=== PATIENT | female | born 1985 ===

== ENCOUNTER 2017-06-29 09:36 | Emergency (ER) | payer OTHER ==
[2017-06-29 09:36] VITALS: BMI 25.8
[2017-06-29 09:52] VITALS: RESP 16; TEMP 98.5
[2017-06-29] MEDS ORDERED: Oxycodone/Acetaminophen 5/325 mg Tab PO STA (10:01)
[2017-06-29] MEDS ORDERED: Lidocaine 5% Patch TD STA (10:01)
--- NOTE | 2017-06-29 10:06 | ED PDOC ---
Arrival/HPI - General Chief Complaint: Back Pain Time Seen by Provider: 06/29/17 09:53 Historian: Patient - History of Present Illness Narrative History of Present Illness (Text): 06/29/17 10:03 32 y/o female, no significant pmh, nkda, c/o lower back pain s/p heavy lifting using the back yesterday and woke up this morning with the pain. Aching pain, aggravated by movement, no urinary symptoms, no urinary or bowel incontinence or retention, no night sweat, no dizziness, no night sweat, took motrin at home with limited relief last night, no other medical or psychological complaints. Past Medical History - Provider Review Nursing Documentation Reviewed: Yes - Infectious Disease Hx of Infectious Diseases: None - Tetanus Immunization Tetanus Immunization: Unknown - Reproductive Menopause: No - Musculoskeletal/Rheumatological Hx Back Pain: Yes - Psychiatric Hx Anxiety: Yes Hx Substance Use: No - Surgical History Hx Tonsillectomy: Yes - Anesthesia Hx Anesthesia: Yes Hx Anesthesia Reactions: No Hx Malignant Hyperthermia: No Family/Social History - Physician Review Nursing Documentation Reviewed: Yes Family/Social History: Unknown Family HX Smoking Status: Former Smoker Hx Alcohol Use: Yes Frequency of alcohol use: Socially Hx Substance Use: No Allergies/Home Meds Allergies/Adverse Reactions: Allergies cat dander Allergy (Verified 12/29/16 19:18) ITCHING Review of Systems - Review of Systems Constitutional: absent: Fatigue, Fevers Eyes: absent: Vision Changes ENT: absent: Hearing Changes Respiratory: absent: Cough Cardiovascular: absent: Chest Pain Gastrointestinal: absent: Abdominal Pain, Nausea, Vomiting Musculoskeletal: Back Pain, Myalgias. absent: Arthralgias, Neck Pain, Joint Swelling Skin: absent: Rash, Pruritis, Skin Lesions Physical Exam Vital Signs Reviewed: Yes Vital Signs Temp Pulse Resp BP Pulse Ox 06/29/17 09:47 98.5 F 72 16 110/73 98 Temperature: Afebrile Blood Pressure: Normal Pulse: Regular Respiratory Rate: Normal Appearance: Positive for: Well-Appearing, Non-Toxic Pain Distress: Severe Mental Status: Positive for: Alert and Oriented X 3 - Systems Exam Head: Present: Atraumatic, Normocephalic Pupils: Present: PERRL Extroacular Muscles: Present: EOMI Conjunctiva: Present: Normal Mouth: Present: Moist Mucous Membranes Neck: Present: Normal Range of Motion Respiratory/Chest: Present: Clear to Auscultation, Good Air Exchange. No: Respiratory Distress, Accessory Muscle Use Cardiovascular: Present: Regular Rate and Rhythm, Normal S1, S2. No: Murmurs Abdomen: Present: Normal Bowel Sounds. No: Tenderness, Distention, Peritoneal Signs Back: Present: Normal Inspection, Other (LS spine: +ttp on the rt. paraspinal region, no rash, no midline tenderness or step off, no cva tenderness, FROM without limitation but pain upon lateral movement, sensation intact, motor 5/5, no saddling gait. ). No: CVA Tenderness, Midline Tenderness, Pain with Leg Raise, Decubitus Ulcer Upper Extremity: Present: Normal Inspection. No: Cyanosis, Edema Lower Extremity: Present: Normal Inspection. No: Edema Neurological: Present: GCS=15, CN II-XII Intact, Speech Normal Skin: Present: Warm, Dry, Normal Color. No: Rashes Psychiatric: Present: Alert, Oriented x 3, Normal Insight, Normal Concentration Medical Decision Making ED Course and Treatment: 06/29/17 10:05 -toradol/percocet/lidoderm patch -Cane for supportive treatment -There is no emergent indication for radiology study at this time. -Discharge home with naproxen, flexeril, lidoderm patch, cane, heat compression , follow up with your own pmd within 2 days, return to the ER for any new or worsening signs or symptoms. - PA / GRAPHIC COORDINATOR / Resident Statement MD/DO has reviewed & agrees with the documentation as recorded. Disposition/Present on Arrival - Present on Arrival Any Indicators Present on Arrival: No History of DVT/PE: No History of Uncontrolled Diabetes: No Urinary Catheter: No History of Decub. Ulcer: No History Surgical Site Infection Following: None - Disposition Have Diagnosis and Disposition been Completed?: Yes Diagnosis: Back strain Disposition: HOME/ ROUTINE Disposition Time: 10:06 Patient Plan: Discharge Condition: GOOD Additional Instructions: -Discharge home with naproxen, flexeril, lidoderm patch, cane, heat compression , follow up with your own pmd within 2 days, return to the ER for any new or worsening signs or symptoms. Prescriptions: Cyclobenzaprine [Cyclobenzaprine HCl] 10 mg PO TID PRN #21 tab PRN Reason: Other Lidocaine 5% [Lidoderm] 1 patch TOP DAILY PRN #10 patch PRN Reason: Other Naproxen 500 mg PO BID PRN #20 tab PRN Reason: Other Referrals: [facility] [place] [Outside] - Follow up with primary Forms: [employer] ([place]ian), WORK NOTE
[2017-06-29 11:17] VITALS: BP 112/82; PULSE 70; O2SAT 100
== END 2017-06-29 11:15 | disposition home or self-care (01) ==
LOC: ED 09:36
DX: S39.012A Strain of muscle, fascia and tendon of lower back, initial encounter (principal); X50.0XXA Overexertion from strenuous movement or load, initial encounter; Y93.89 Activity, other specified; Y92.89 Other specified places as the place of occurrence of the external cause
CPT/HCPCS: 96372; 99283; J1885